=== PATIENT | female | born 1995 | race Caucasian/White ===

== ENCOUNTER 2017-07-06 10:35 | Day surgery (SDC) | payer OTHER ==
[2017-07-04 09:18] VITALS: BMI 34.0
--- NOTE | 2017-07-05 15:17 | HISTORY & PHYSICAL EXAMINATION ---
DATE OF ADMISSION: 07/06/2017 CHIEF COMPLAINT: Left foot pain. HISTORY OF PRESENT ILLNESS: The patient is a 22-year-old female who injured her left foot when she had a fall. She had immediate pain and disability. She was seen in the Emergency Room and then referred to our office for evaluation. X-rays revealed a displaced left fifth proximal metatarsal fracture. She is now scheduled for a left foot ORIF of her fifth metatarsal fracture. PAST MEDICAL HISTORY: Depression. PAST SURGICAL HISTORY: Tonsillectomy. MEDICATIONS: None. ALLERGIES: AMOXICILLIN. SOCIAL HISTORY AND REVIEW OF SYSTEMS: Noncontributory. PHYSICAL EXAMINATION: GENERAL: Well-nourished and well-developed young healthy female. HEENT: Normocephalic and atraumatic. Extraocular movements intact. Oropharynx is pink and moist. NECK: Supple without adenopathy. LUNGS: Clear to auscultation bilaterally. HEART: Regular rate and rhythm. ABDOMEN: Soft, nontender, nondistended, and obese. EXTREMITIES: The upper extremities are within normal limits. The left foot demonstrates painful range of motion of the foot and ankle. She has moderate swelling about the left foot region. There is mild ecchymosis. She is tender to palpate about the base of the fifth metatarsal. ASSESSMENT: Displaced base of fifth metatarsal fracture, left foot. PLAN: Risks versus benefits were discussed. Consent was obtained. We will proceed with ORIF of her left foot base of fifth metatarsal fracture in the near future.
[~2017-07-06] VITALS: Ht 162.6 cm; Wt 90.9 kg
[~2017-07-06 10:35] MED LIST: CEFAZOLIN 2000 MG/60 ML D5W IV SCH; CLR10 PO; HYDROCODONE/APAP PO; LACTATED RINGER'S 1000ML 1,000 ML IV SCH; LACTATED RINGER'S 1000ML 500 ML IV ONE; ROPIVACAINE 0.5% 5 MG/ML 30 ML VIAL ONE
[2017-07-06 11:06] VITALS: BP 158/89; PULSE 66; TEMP 36.7; O2SAT 97; BMI 34.0
[2017-07-06 11:35] VITALS: BP 158/89; PULSE 66; TEMP 36.7; O2SAT 97; Ht 162.6 cm; Wt 90.9 kg
--- NOTE | 2017-07-06 11:38 | History & Physical Bridge Note ---
H&P Re-Evaluation Bridge Note: I have examined the patient, reviewed the History & Physical and in the interval since the performance of the History & Physical I have noted the following changes of clinical significance: No changes noted
[2017-07-06] MEDS ORDERED: GLYCOPYRROLATE INJ 0.2 MG/ML VIAL ONE (11:43)
[2017-07-06] MEDS ORDERED: ONDANSETRON INJ 2 MG/ML 2 ML VIAL ONE (11:43)
[2017-07-06] MEDS ORDERED: PROPOFOL IV EMULSION 10 MG/ML 20 ML VIAL IV ONE (11:43)
[2017-07-06] MEDS ORDERED: FENTANYL CITRATE INJ 50 MCG/1 ML 2 ML VIAL ONE (11:43)
[2017-07-06] MEDS ORDERED: NEOSTIGMINE METHYLSULFATE 5 MG/5 ML SYR ONE (11:43)
[2017-07-06] MEDS ORDERED: ROCURONIUM BROMIDE 10 MG/ML 5 ML VIAL IV ONE (11:43)
[2017-07-06] MEDS ORDERED: MIDAZOLAM HCL 1 MG/ML 2ML VIAL ONE (11:43)
[2017-07-06] MEDS ORDERED: DEXAMETHASONE SOD INJ 4 MG/ML VIAL ONE (11:43)
[2017-07-06] MEDS ORDERED: LIDOCAINE HCL 2% 2 ML VIAL (20MG/ML) ONE (11:43)
[2017-07-06] MEDS ORDERED: BUPIVACAINE/EPINEPHRINE 0.5% MPF 1:200,000 10 ML VIAL ONE (12:11)
[2017-07-06] MEDS ORDERED: ONDANSETRON INJ 2 MG/ML 2 ML VIAL IV PRN (12:30)
[2017-07-06] MEDS ORDERED: EpHEDrine SULFATE INJ 50 MG/ML AMP IV PRN (12:30)
[2017-07-06] MEDS ORDERED: PHENYLEPHRINE 100MCG/ML 5ML SYR IV PRN (12:30)
[2017-07-06] MEDS ORDERED: ATROPINE SULFATE 0.1 MG/ML 5ML SYR IV PRN (12:30)
--- NOTE | 2017-07-06 13:29 | [facility] Post Operative Brief Note ---
Immediate Operative Summary Operative Date Jul 06, 2017. Pre-Operative Diagnosis LEFT 5TH METATARSAL FRACTURE Post-Operative Diagnosis SAME PREOP Procedure(s) Performed OPEN REDUCTION INTERNAL FIXATION LEFT 5TH METATARSAL JOINT Surgeon DR. Valerio ESPINOSA Door Captain Surgeon(s) Allen BROOKS PAC Estimated Blood Loss 5cc Findings displaced fracture Specimens none Disposition Recovery Room / PACU
--- NOTE | 2017-07-06 13:39 | DIAGNOSTIC IMAGING REPORT ---
LEFT FOOT 2 VIEWS CLINICAL HISTORY: Left foot 5th metatarsal ORIF fracture COMPARISON: 07/06/2017 DISCUSSION: Evidence for pin fixation fracture base of the fifth metatarsal. Alignment is anatomic. There is no evidence for soft tissue swelling. IMPRESSION: Anatomic alignment status post pin fixation base fifth metatarsal. The above report was generated using voice recognition software. It may contain grammatical, syntax or spelling errors. Electronically signed by: Dony Barroso M.D. 07/06/2017 1:38 PM Dictated Date/Time: 07/06/2017 1:36 PM
[2017-07-06] MEDS ORDERED: SODIUM CHLORIDE 0.9% 1000ML 1,000 ML IV SCH (13:50)
--- NOTE | 2017-07-06 13:53 | Discharge Instructions ---
Discharge Instructions Date of Service Jul 06, 2017. Visit Reason for Visit: Left Foot Metatarsal Fracture Discharge Discharge Diagnosis / Problem: Left foot 5th metatarsal fracture Discharge Goals Goal(s): Decrease discomfort, Improve function Activity Recommendations Activity Limitations: as noted below Weightbearing Status: Left non-weightbearing Anesthesia . Post Anesthesia Instructions: If you have had General Anesthesia or IV Sedation: * Do not drive today. * Resume driving when surgeon permits. * Do not make important decisions or sign legal documents today. * Call surgeon for: 1. Temperature elevations greater than 101 degrees F. 2. Uncontrollable pain. 3. Excessive bleeding. 4. Persistent nausea and vomiting. 5. Medication intolerance (nausea, vomiting or rash). * For nausea and vomiting use only clear liquids such as: tea, soda, bouillon until nausea subsides, then gradually increase diet as tolerated. * If you have any concerns or questions, call your surgeon's office. If physician is unavailable and it is an emergency, call 911 or go to the nearest emergency room. . Instructions / Follow-Up Instructions / Follow-Up Nonweightbearing left LE with crutches. Maintain splint/dressing until follow- up with MD. Frequent ice and elevation as needed. Diet Recommendations Recommended Home Diet: resume previous diet Procedures Procedures Performed: OPEN REDUCTION INTERNAL FIXATION LEFT 5TH METATARSAL JOINT Pending Studies Studies pending at discharge: no Medical Emergencies . Who to Call and When: Medical Emergencies: If at any time you feel your situation is an emergency, please call 911 immediately. . Non-Emergent Contact Non-Emergency issues call your: Surgeon Call Non-Emergent contact if: temperature is above 101.5, your pain is not controlled, wound has increased drainage, wound has increased redness . . "Provider Documentation" section prepared by Lowell Wen PA-C. .
[2017-07-06] MEDS: HYDROmorphone INJ 2 MG/ML SYR/VIAL IV PRN ×4 (13:58→14:21)
[2017-07-06] MEDS ORDERED: HYDROCODONE/ACETAMOPHEN 5/325MG TAB PO PRN (14:00)
[2017-07-06] MEDS ORDERED: OXYCODONE/ACETAMINOPHEN 5-325 TAB PO PRN (14:00)
--- NOTE | 2017-07-06 14:29 | Anesthesiology Progress Note ---
Anesthesia Post Op Note Date & Time Jul 06, 2017 at 14:29 Vital Signs Pain Intensity: 5 Vital Signs Past 12 Hours Date Time Temp Pulse Resp B/P (MAP) Pulse Ox O2 Delivery O2 Flow Rate FiO2 07/06/17 13:50 36.5 79 16 109/51 100 Mask 10 07/06/17 11:35 36.7 66 20 158/89 (112) 97 Notes Mental Status: alert / awake / arousable, participated in evaluation Pt Amnestic to Procedure: Yes Nausea / Vomiting: adequately controlled Pain: adequately controlled Airway Patency, RR, SpO2: stable & adequate BP & HR: stable & adequate Hydration State: stable & adequate Anesthetic Complications: no major complications apparent
--- NOTE | 2017-07-06 14:41 | OPERATIVE REPORT ---
DATE OF OPERATION: 07/06/2017 PREOPERATIVE DIAGNOSIS: Displaced comminuted fifth metatarsal base fracture. POSTOPERATIVE DIAGNOSIS: Displaced comminuted fifth metatarsal base fracture. PROCEDURE: Open reduction internal fixation. SURGEON: Dr. Munguia. CONFIGURATION TECHNICIAN: Lowell Wen PA-C. ANESTHESIA: General. COMPLICATIONS: None. Mr. Wen was utilized throughout the procedure in all phases including positioning, prepping, draping, neurosurgical physician assistant, wound closure and sling application. DESCRIPTION OF PROCEDURE: The patient was placed in right lateral decubitus position and the longitudinal incision made over the base of fifth metatarsal. Fracture site was identified and hematoma was noted. There was a comminuted articular fragment dorsally as well as the main plantar fragment. A blood clot was removed and the fracture site was irrigated ensuring all clot was removed. The articular fragment was rotated into position and the main fragment was held in position using a dental pick while a drill tipped guidewire for the 4.0 cannulated screw was inserted. Check x-rays revealed good screw placement and anatomic reduction and the fracture was fixed using a 28 mm cannulated screw with washer. With this in place the dorsal articulated section of the fragment was stably held it in position and the wound was irrigated and closed using 3-0 Dexon and nylon. Sterile dressing of Adaptic, 4x4s, and plaster splint was applied. The patient tolerated the procedure well. I attest to the content of the Intraoperative Record and any orders documented therein. Any exception s are noted below.
[2017-07-06 14:50] VITALS: BP 137/60; PULSE 70; TEMP 36.5; O2SAT 93
[2017-07-06 15:20] VITALS: BP 126/63; PULSE 77; TEMP 36.5; O2SAT 97
[2017-07-06 15:55] VITALS: BP 121/61; PULSE 64; TEMP 36.7; O2SAT 97
== END 2017-07-06 16:10 | disposition home or self-care (01) ==
LOC: C.ACU 10:35
DX: S92.352A Displaced fracture of fifth metatarsal bone, left foot, initial encounter for closed fracture (principal); W19.XXXA Unspecified fall, initial encounter; Y92.89 Other specified places as the place of occurrence of the external cause